=== PATIENT | male | born 2000 | race Two or more races ===

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

== ENCOUNTER 2019-11-11 19:43 | Emergency (ER) | payer OTHER ==
[~2019-11-11] VITALS: Ht 177.8 cm; Wt 63.5 kg
== END 2019-11-11 21:43 | disposition home or self-care (01) ==
LOC: ER 19:43
DX: S01.322A Laceration with foreign body of left ear, initial encounter (principal); W45.8XXA Other foreign body or object entering through skin, initial encounter; Y93.89 Activity, other specified; Y92.89 Other specified places as the place of occurrence of the external cause; Y99.8 Other external cause status

== ENCOUNTER 2019-11-27 19:27 | Emergency (ER) | payer OTHER ==
[~2019-11-27] VITALS: Ht 177.8 cm; Wt 63.5 kg
== END 2019-11-27 20:57 | disposition home or self-care (01) ==
LOC: ER 19:27
DX: S90.01XA Contusion of right ankle, initial encounter (principal); Z48.02 Encounter for removal of sutures; W22.8XXA Striking against or struck by other objects, initial encounter; Y93.89 Activity, other specified; Y92.832 Beach as the place of occurrence of the external cause; Y99.8 Other external cause status

== ENCOUNTER 2024-12-16 16:48 | Emergency (ER) | payer OTHER ==
[~2024-12-16] VITALS: Ht 177.8 cm; Wt 68.0 kg
[2024-12-16] MEDS ORDERED: KETOROLAC TROMETHAMINE 30 MG VIAL IM ONE (18:00)
[2024-12-16] MEDS ORDERED: KETOROLAC TROMETHAMINE 30 MG VIAL ONE (18:29)
[2024-12-16] MEDS ORDERED: PEPCID AC20 MG PO (19:37)
[2024-12-16] MEDS ORDERED: TRAMADOL HCL E100 MG PO (19:37)
== END 2024-12-16 19:47 ==
LOC: ER 16:48
DX: S52.502A Unspecified fracture of the lower end of left radius, initial encounter for closed fracture (principal); S52.602A Unspecified fracture of lower end of left ulna, initial encounter for closed fracture; V00.131A Fall from skateboard, initial encounter; Y93.89 Activity, other specified; Y92.89 Other specified places as the place of occurrence of the external cause; Y99.9 Unspecified external cause status

== ENCOUNTER 2024-12-19 13:28 | Outpatient (CLI) | payer OTHER ==
[~2024-12-19 13:28] MED LIST changes: +PEPCID AC20 MG PO; +TRAMADOL HCL E100 MG PO
== END 2024-12-19 13:36 | disposition home or self-care (01) ==
LOC: RAD 13:28
PROVIDERS: ATTEND Orthopaedic Surgery
DX: S52.532A Colles' fracture of left radius, initial encounter for closed fracture (principal)

== ENCOUNTER 2024-12-22 08:19 | Outpatient (CLI) | payer OTHER | END 2024-12-22 08:32 | disposition home or self-care (01) | LOC: RAD 08:19 | PROVIDERS: ATTEND Radiology Diagnostic Radiology | DX: S50.12XA Contusion of left forearm, initial encounter (principal) ==